=== PATIENT | female | born 1965 | race Caucasian/White ===

== ENCOUNTER 2024-01-22 10:35 | Outpatient (REF) | payer MEDICAID, SELFPAY ==
[2024-01-22 15:24] LABS: ALT 22 U/L (14-59); AST 19 U/L (15-37); Albumin 3.8 g/dL (3.4-5.0); Alkaline Phosphatase 90 U/L (46-116); Anion Gap 6.7 mmol/L (3-11); BUN 18 mg/dL (7-18); Bilirubin, Total 0.7 mg/dL (0.2-1.0); CO2 29.3 mmol/L (21.0-32.0); CREATININE 0.9 mg/dL (0.55-1.02); Calcium 9.1 mg/dL (8.5-10.1); Calculated LDL 136 mg/dL (<100); Chloride 107 mmol/L (98-107); Cholesterol 232 mg/dL (<200); Estimated GFR 73.19 (mL/min/1.73m2); Glucose 100 mg/dL (74-106); HDL Cholesterol 50 mg/dL (40-60); Potassium 4.5 mmol/L (3.5-5.1); Sodium 143 mmol/L (136-145); Triglyceride 234 mg/dL (<150)
[2024-01-22 16:30] LABS: Hemoglobin A1C 5.3 % (<5.7)
== END 2024-01-22 10:36 | disposition home or self-care (01) ==
LOC: NCHCN 10:35
PROVIDERS: PCP Nurse Practitioner Family; Visit Provider Family Medicine
DX: Z13.6 Encounter for screening for cardiovascular disorders (principal)
CPT/HCPCS: 80053; 80061; 83036

== ENCOUNTER 2024-02-14 15:55 | Outpatient (REF) | payer MEDICAID, SELFPAY ==
--- NOTE | 2024-02-14 09:00 | PAPFT_PTH ---
PATIENT: Chika Luther LOC: [facility]#:[id number] AGE/SX: 58/F ROOM: RE02/14/[address]: Gemma Wets : 1965 BED: DIS: 02/14/2024 SPEC #: [id number] RECD: 02/14/24 17:39 STATUS: JEROD REQ #: [id number] DANITZA: 02/14/24 09:[address]: Gemma West DEPT: [facility] Cytology RECD BY: Karina García ENTERED: 02/14/24 17:40 SP TYPE: PAPFT OTHR DR: Jayshree Hawkins Tissues: 1 - CX/ENDOCX FOR PAP SMEARS Procedures: PAP THIN PREP/[facility] Screening HPV DNA PROBE Comments: [id number] (HPV 16 & 18/45)
== END 2024-02-14 15:56 | disposition home or self-care (01) ==
LOC: NCHCN 15:55
PROVIDERS: PCP Nurse Practitioner Family; Visit Provider Family Medicine
DX: Z11.51 Encounter for screening for human papillomavirus (HPV); Z12.72 Encounter for screening for malignant neoplasm of vagina
CPT/HCPCS: 88142; 87624

== ENCOUNTER 2025-01-08 14:02 | Outpatient (REF) | payer MEDICAID, SELFPAY ==
[2025-01-08 14:58] LABS: Hemoglobin A1C 5.7 % (<5.7)
[2025-01-08 15:07] LABS: Anion Gap 3.3 mmol/L (3-11); BUN 18 mg/dL (7-18); CO2 31.7 mmol/L (21.0-32.0); CREATININE 0.9 mg/dL (0.55-1.02); Calcium 9.3 mg/dL (8.5-10.1); Calculated LDL 165 mg/dL (<100); Chloride 107 mmol/L (98-107); Cholesterol 256 mg/dL (<200); Estimated GFR 72.73 (mL/min/1.73m2); Glucose 102 mg/dL (74-106); HDL Cholesterol 48 mg/dL (>or=50); Potassium 4.9 mmol/L (3.5-5.1); Sodium 142 mmol/L (136-145); Triglyceride 218 mg/dL (<150)
== END 2025-01-08 14:03 | disposition home or self-care (01) ==
LOC: NCHCN 14:02
PROVIDERS: PCP Nurse Practitioner Family; Visit Provider Family Medicine
DX: Z00.00 Encounter for general adult medical examination without abnormal findings (principal)
CPT/HCPCS: 80048; 80061; 83036